=== PATIENT | male | born 1940 | race Caucasian/White ===

== ENCOUNTER 2017-10-03 00:43 | Emergency (ER) | payer MEDICARE, OTHER ==
--- NOTE | 2017-10-03 01:00 | Emergency Department Record ---
History of Present Illness - General Chief Complaint: Chest Pain Stated Complaint: CHEST PAIN Time Seen by Provider: 10/03/17 00:55 Source: Patient Mode of Arrival: Ambulatory Limitations: No limitations - History of Present Illness Initial Comments: The patient is a 77 Y/O male with a 90 minute hx of chest heaviness at home. The onset was at rest and was associated with mild SOB but no sweating. The patient did take multiple NTG pills with mild relief. 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 He denies any recent illness or injuries. The patient also states he has been having increased CP with exertion for weeks and even months. MD Complaint: Chest pain Onset/Timin -: Minutes(s) Onset: Awoke with symptoms Pain Location: Left chest Pain Radiation: YIFAN GRANADO Severity scale (1-10): 6 Quality: Heaviness Consistency: Constant Improves With: Nitroglycerin Anginal Symptoms: Dyspnea Treatments Prior to Arrival: Nitroglycerin - Related Data Home Medications Medication Instructions Recorded Confirmed Last Taken Aspirin 81 mg PO DAILY 10/03/17 10/03/17 Unknown Atorvastatin Calcium 40 mg PO QHS 10/03/17 10/03/17 Unknown Clopidogrel Bisulfate [Clopidogrel] 75 mg PO DAILY 10/03/17 10/03/17 Unknown Isosorbide Mononitrate [Imdur] 30 mg PO DAILY 10/03/17 10/03/17 Unknown Lisinopril/Hydrochlorothiazide 1 each PO DAILY 10/03/17 10/03/17 Unknown [Lisinopril-Hctz 20-12.5 mg Tab] Metoprolol Tartrate [Lopressor] 50 mg PO DAILY 10/03/17 10/03/17 Unknown Nitroglycerin 0.4MG [Nitrostat 1 tab SL ASDIR PRN 10/03/17 10/03/17 10/03/17 0.4MG] Omeprazole [Prilosec] 40 mg PO DAILY 10/03/17 10/03/17 Unknown Ranolazine [Ranexa] 1,000 mg PO BID 10/03/17 10/03/17 Unknown Allergies Allergy/AdvReac Type Severity Reaction Status Date / Time indomethacin [From Indocin] Allergy BEHAVIORAL Verified 10/03/17 00:45 CHANGES morphine Allergy HIVES Verified 10/03/17 00:45 promethazine [From Phenergan] Allergy BEHAVIORAL Verified 10/03/17 00:45 CHANGES Travel Screening - Travel/Exposure Within Last 30 Days Have you traveled within the last 30 days?: Yes Location Detail:: [place] - Travel Symptoms Symptom Screening: None Review of Systems Constitutional: Denies: Chills, Fever Eyes: Denies: Eye discharge ENT: Denies: Congestion Respiratory: Denies: Cough, Dyspnea Cardiovascular: Reports: Chest pain Endocrine: Denies: Fatigue Gastrointestinal: Denies: Abdominal pain, Hematemesis, Hematochezia, Melena Genitourinary: Denies: Dysuria Musculoskeletal: Denies: Arthralgia Past Medical History - SOCIAL HISTORY Smoking Status: Former smoker - RESPIRATORY Hx Respiratory Disorders: Yes Hx Pulmonary Embolism: Yes Comment:: Early emphysema - CARDIOVASCULAR Hx Cardio Disorders: Yes Hx Chest Pain: Yes Hx Deep Vein Thrombosis: Yes Hx Hypertension: Yes Hx Irregular Heartbeat: Yes (PVC's) Comment:: High cholesterol - NEURO Hx Neuro Disorders: No - GI Hx GI Disorders: Yes Hx Crohn's Disease: Yes Hx Obstructive Bowel: Yes Comment:: Inguinal hernia -L - Hx Genitourinary Disorders: Yes Hx Kidney Stones: Yes - ENDOCRINE Hx Endocrine Disorders: No - MUSCULOSKELETAL Hx Musculoskeletal Disorders: Yes Hx Arthritis: Yes Comment:: Psoriasis - PSYCH Hx Psych Problems: Yes Hx Anxiety: Yes Hx Depression: Yes - HEMATOLOGY/ONCOLOGY Hx Hematology/Oncology Disorders: No Family Medical History Any Significant Family History?: Yes Hx Heart Disease: Father *Heart Comment: [place] at age 52- Hx HTN: Mother Hx Liver Disease: Mother Physical Exam - General General Appearance: Alert, Oriented x3, Cooperative, No acute distress - Head Head exam: Atraumatic, Normocephalic, Normal inspection - Eye Eye exam: Normal appearance, PERRL - Neck Neck exam: Normal inspection, Full ROM. negative: Tenderness - Respiratory Respiratory exam: Normal lung sounds bilaterally. negative: Respiratory distress - Cardiovascular Cardiovascular Exam: Regular rate, Normal rhythm, Normal heart sounds - GI/Abdominal GI/Abdominal exam: Soft, Normal bowel sounds. negative: Tenderness - Rectal Rectal exam: Heme (-) stool - Extremities Extremities exam: Normal inspection, Full ROM, Normal capillary refill. negative: Tenderness - Back Back exam: Denies: Normal inspection - Neurological Neurological exam: Alert, Normal gait. negative: Abnormal gait - Psychiatric Psychiatric exam: negative: Anxious Course Vital Signs 10/03/17 00:45 Pulse Rate [ 83 Pulse Ox Probe] Respiratory 20 Rate Blood Pressure 136/67 [Left Arm] Pulse Ox 97 - Reevaluation(s) Reevaluation #1: The patient is doing a little better at this time. He is smiling and laughing at times and appears very comfortable. He states he is still having some chest heaviness. 10/03/17 01:33 Reevaluation #2: I did discuss the case with Dr. Kim who is solvent station attendant at [facility] for [facility]. He does accept the patient in transfer. 10/03/17 01:40 Reevaluation #3: The patient does appear comfortable but is having persistent pain at 5/10. We will bump his NTG up to 20 mcg and order a 2nd dose of IV Dilaudid. He is ready for transfer and does have a bed at [facility] presently. 10/03/17 02:19 Medical Decision Making - Data Complexity MDM Data: Labs Ordered and/or Reviewed, X-Ray Ordered and/or Reviewed, EKG Ordered and/or Reviewed - Lab Data Result diagrams: 10/03/17 01:03 10/03/17 01:03 - EKG Data -: EKG Interpreted by Me (NSR at 79, RBBB.) - Radiology Data Radiology results: Report reviewed (CXR: Neg for acute changes.) Disposition Disposition: Transfer Clinical Impression: Unstable angina Disposition: Acute Care Hospital Transfer Transfer To: [facility] Reason For Transfer: Cardiology Accepting Physician: Julio Time Discussed w/Accepting Physician: 01:41 Condition: (2) Stable Forms: Patient Portal Access Time of Disposition: 01:41 Quality - Quality Measures Quality Measures: N/A - Blood Pressure Screening View Details: Yes Does Patient Have Any of the Following: No Blood Pressure Classification: Pre-Hypertensive BP Reading Systolic Measurement: 126 Diastolic Measurement: 72 Screening for High Blood Pressure: < Pre-Hypertensive BP, F/U Documented > [ G8950] Pre-Hypertensive Follow-up Interventions: Referral to alternative/primary care provider.
[2017-10-03] MEDS ORDERED: ASPIRIN 325 MG TABLET PO ONE (01:02)
[2017-10-03 01:09] LABS: BASO % 0.2 % (0-6); EOS % 1.2 % (0-6); GRAN % 58.4 % (47-80); HEMATOCRIT 32.2 % (42.0-52.0); HEMOGLOBIN 10.6 gm/dl (14.0-18.0); LYMPH % 31.9 % (16-45); MEAN CELL VOLUME 91.5 fl (81-97); MEAN CORPUSCULAR HEMOGLOBIN 30.1 pg (27-33); MEAN CORPUSCULAR HGB CONC 32.9 g/dl (32-36); MEAN PLATELET VOLUME 9.7 fl (7.4-10.4); MONO % 8.3 % (0-9); PLATELET COUNT 205 K/uL (130-400); RED BLOOD COUNT 3.52 M/uL (4.40-5.70); RED CELL DISTRIBUTION WIDTH 13.9 % (11.5-14.5); WHITE BLOOD COUNT W/O DIFF 5.9 K/uL (4.2-12.2)
[2017-10-03] MEDS ORDERED: NITROGLYCERIN/D5W 50 MG/250 ML ML IV SCH (01:15)
[2017-10-03 01:17] LABS: BLOOD UREA NITROGEN 12 mg/dL (8-23); CREATININE 0.8 mg/dL (0.7-1.2); EST GLOMERULAR FILTRATION RATE > 60 mL/min
[2017-10-03] MEDS ORDERED: HYDROMORPHONE HCL 2 MG/ML VIAL IVP ONE ×2 (01:18→02:18)
[2017-10-03] MEDS ORDERED: ONDANSETRON HCL IV 4 MG/2 ML VIAL IVP ONE (01:18)
[2017-10-03 01:20] LABS: GLUCOSE,RANDOM 109 mg/dL (74-109)
[2017-10-03 01:21] LABS: PARTIAL THROMBOPLASTIN TIME 27.3 SECONDS (24.5-39.1); PROTHROMBIN TIME (PATIENT) 10.3 SECONDS (9.5-12.1)
[2017-10-03] MEDS ORDERED: HEPARIN SODIUM 1000 UNIT/1 ML 10ML VIAL IVP ONE (01:22)
[2017-10-03 01:23] LABS: CREATINE PHOSPHOKINASE 189 U/L (39-308)
[2017-10-03 01:25] LABS: CKMB 2.8 ng/mL (<6.73)
[2017-10-03] MEDS ORDERED: HEPARIN SODIUM/D5W 25,000 UNITS/500 ML BAG IV SCH (01:30)
[2017-10-03] MEDS ORDERED: POTASSIUM CHLORIDE 20 MEQ TABLET PO ONE (01:38)
--- NOTE | 2017-10-05 08:32 | RADIOLOGY REPORT ---
EXAM: CHEST 1 VIEW HISTORY: DIFFICULTY IN BREATHING. TECHNIQUE: Portable AP upright view of the chest was performed. FINDINGS: Post-op sternotomy wires. Vascular stent in place. Heart size is normal. Lung montano are clear. Osseous structures are normal. IMPRESSION: NO ACUTE PULMONARY DISEASE PROCESS. JOB NUMBER: [id number] MTDD
== END 2017-10-03 02:35 | disposition short-term general hospital (02) ==
LOC: ER 00:43
DX: I20.0 Unstable angina (principal); R06.00 Dyspnea, unspecified; I10 Essential (primary) hypertension; Z86.718 Personal history of other venous thrombosis and embolism; Z95.1 Presence of aortocoronary bypass graft; Z87.891 Personal history of nicotine dependence
CPT/HCPCS: 99285 ×2; 96376; 96365; 96366; 96375; 96368; 82550; 85025; 85730; 85610; 82553; 80048; 84484; 71045; 93005; 93010; J2405; J1170

== ENCOUNTER 2017-12-02 12:00 | Emergency (ER) | payer MEDICARE, OTHER ==
--- NOTE | 2017-12-02 12:29 | Emergency Department Record ---
History of Present Illness - General Chief Complaint: Syncope Stated Complaint: SYNCOPAL EPISODE Time Seen by Provider: 12/02/17 12:22 Source: Patient Mode of Arrival: Wheelchair Limitations: No limitations - History of Present Illness Initial Comments: pt was outside when he felt a sudden overwhelming weakness . he went inside and contd to feel that way. he said it felt like when he had a heart attack except he had no chest pain and no sob and no nausea or diaphoresis. he did feel sweaty. MD Complaint: Almost passed out Onset/Timin -: Hour(s) Prodromal Symptoms: Nausea/vomiting, Other Injuries Sustained Associated with Event: Chest Current Symptoms: Lightheaded, Weakness Treatments Prior to Arrival: None, Medication Treatment Prior to Arrival Comment:: 1- nitro - Kirsten Coma Scale Eye Response: (4) Open spontaneously Motor Response: (6) Obeys commands Verbal Response: (5) Oriented Bryant Total: 15 - Symptoms of Stroke Symptoms of stroke: Dizziness, Unsteady When Walking - Related Data Home Medications Medication Instructions Recorded Confirmed Last Taken Glucosamine/Chondr Puliod A Sod 1 each PO DAILY 12/02/17 12/02/17 Unknown [Glucosamine-Chondroitin Tablet] Magnesium Oxide [Magnesium] 400 mg PO DAILY 12/02/17 12/02/17 Unknown Vitamin B Complex 1 each PO DAILY 12/02/17 12/02/17 Unknown Allergies Allergy/AdvReac Type Severity Reaction Status Date / Time indomethacin [From Indocin] Allergy BEHAVIORAL Verified 10/03/17 00:45 CHANGES morphine Allergy HIVES Verified 10/03/17 00:45 promethazine [From Phenergan] Allergy BEHAVIORAL Verified 10/03/17 00:45 CHANGES Travel Screening - Travel/Exposure Within Last 30 Days Have you traveled within the last 30 days?: No - Travel/Exposure Within Last Year Have you traveled outside the [place] in the last year?: No - Additonal Travel Details Have you been exposed to anyone with a communicable illness?: No - Travel Symptoms Symptom Screening: None Review of Systems Reviewed: No additional complaints except as noted below Constitutional: Reports: As per HPI. Denies: Chills, Fever, Malaise, Night sweats, Weakness, Weight change Eyes: Reports: As per HPI. Denies: Eye discharge, Eye pain, Photophobia, Vision change ENT: Reports: As per HPI. Denies: Congestion, Dental pain, Ear pain, Epistaxis , Hearing loss, Throat pain Respiratory: Reports: As per HPI. Denies: Cough, Dyspnea, Hemoptysis, Stridor, Wheezes Cardiovascular: Reports: As per HPI. Denies: Arrhythmia, Chest pain, Dyspnea on exertion, Edema, Murmurs, Orthopnea, Palpitations, Paroxysmal nocturnal dyspnea, Rheumatic Fever, Syncope Endocrine: Reports: As per HPI. Denies: Fatigue, Heat or cold intolerance, Polydipsia, Polyuria Gastrointestinal: Reports: As per HPI. Denies: Abdominal pain, Constipation, Diarrhea, Hematemesis, Hematochezia, Melena, Nausea, Vomiting Genitourinary: Reports: As per HPI. Denies: Dysuria, Frequency, Hematuria, Incontinence, Retention, Testicular pain, Testicular mass, Urgency Musculoskeletal: Reports: As per HPI. Denies: Arthralgia, Back pain, Gout, Joint swelling, Myalgia, Neck pain Skin: Reports: As per HPI. Denies: Bruising, Change in color, Change in hair/ nails, Lesions, Pruritus, Rash Neurological: Reports: As per HPI. Denies: Abnormal gait, Confusion, Headache, Numbness, Paresthesias, Seizure, Tingling, Tremors, Vertigo, Weakness Psychiatric: Reports: As per HPI. Denies: Anxiety, Auditory hallucinations, Depression, Homicidal thoughts, Suicidal thoughts, Visual hallucinations Hematological/Lymphatic: Reports: As per HPI. Denies: Anemia, Blood Clots, Easy bleeding, Easy bruising, Swollen glands Past Medical History - SOCIAL HISTORY Smoking Status: Former smoker Alcohol Use: None Drug Use: None - RESPIRATORY Hx Respiratory Disorders: Yes Hx Pulmonary Embolism: Yes Comment:: Early emphysema - CARDIOVASCULAR Hx Cardio Disorders: Yes Hx Chest Pain: Yes Hx Deep Vein Thrombosis: Yes Hx Hypertension: Yes Hx Irregular Heartbeat: Yes (PVC's) Comment:: High cholesterol - NEURO Hx Neuro Disorders: No - GI Hx GI Disorders: Yes Hx Crohn's Disease: Yes Hx Obstructive Bowel: Yes Comment:: Inguinal hernia -L - Hx Genitourinary Disorders: Yes Hx Kidney Stones: Yes - ENDOCRINE Hx Endocrine Disorders: No - MUSCULOSKELETAL Hx Musculoskeletal Disorders: Yes Hx Arthritis: Yes Comment:: Psoriasis - PSYCH Hx Psych Problems: Yes Hx Anxiety: Yes Hx Depression: Yes - HEMATOLOGY/ONCOLOGY Hx Hematology/Oncology Disorders: No Family Medical History Any Significant Family History?: No Hx Heart Disease: Father *Heart Comment: [place] at age 52- Hx HTN: Mother Hx Liver Disease: Mother Physical Exam - General General Appearance: Alert, Oriented x3, Cooperative, Mild distress - Head Head exam: Normal inspection - Eye Eye exam: Normal appearance, PERRL, EOMI Pupils: Normal accommodation - ENT ENT exam: Normal exam, Mucous membranes moist, Normal external ear exam, Normal orophraynx Ear exam: Normal external inspection. negative: External canal tenderness Nasal Exam: Normal inspection. negative: Discharge, Sinus tenderness Mouth exam: Normal external inspection, Tongue normal Teeth exam: Normal inspection. negative: Dental caries Throat exam: Normal inspection. negative: Tonsillar erythema, Tonsillar exudate - Neck Neck exam: Normal inspection, Full ROM. negative: Tenderness - Respiratory Respiratory exam: Normal lung sounds bilaterally. negative: Respiratory distress - Cardiovascular Cardiovascular Exam: Regular rate, Normal rhythm, Normal heart sounds - GI/Abdominal GI/Abdominal exam: Soft, Normal bowel sounds. negative: Tenderness - Rectal Rectal exam: Deferred - exam: Deferred - Extremities Extremities exam: Normal inspection, Full ROM, Normal capillary refill. negative: Tenderness - Back Back exam: Reports: Normal inspection, Full ROM. Denies: Muscle spasm, Rash noted, Tenderness - Neurological Neurological exam: Alert, CN II-XII intact, Normal gait, Oriented X3 - Psychiatric Psychiatric exam: Normal affect, Normal mood - Skin Skin exam: Dry, Intact, Normal color, Warm Course Vital Signs 12/02/17 12:05 Temperature 97.4 F L Pulse Rate 58 L Respiratory 18 Rate Blood Pressure 125/68 Pulse Ox 100 - Reevaluation(s) Reevaluation #1: 12/02/17 14:07 pt states he feels much better and he wants to go home. i asked him to stay for a 4hr troponin Reevaluation #2: 12/02/17 17:04 pt continued to feel much better. 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 return sooner if worse. rest Forms: Patient Portal Access Quality - Quality Measures Quality Measures: N/A - Blood Pressure Screening Does Patient Have Any of the Following: No Blood Pressure Classification: Pre-Hypertensive BP Reading Systolic Measurement: 125 Diastolic Measurement: 68 Screening for High Blood Pressure: < Pre-Hypertensive BP, F/U Documented > [ G8950] Pre-Hypertensive Follow-up Interventions: Follow-up with rescreen every year.
[2017-12-02 12:43] LABS: BASO % 0.4 % (0-6); EOS % 2.9 % (0-6); GRAN % 61.9 % (47-80); HEMATOCRIT 30.2 % (42.0-52.0); HEMOGLOBIN 9.4 gm/dl (14.0-18.0); LYMPH % 26.9 % (16-45); MEAN CELL VOLUME 89.6 fl (81-97); MEAN CORPUSCULAR HGB CONC 31.1 g/dl (32-36); MEAN PLATELET VOLUME 9.6 fl (7.4-10.4); MONO % 7.9 % (0-9); PLATELET COUNT 277 K/uL (130-400); RED BLOOD COUNT 3.37 M/uL (4.40-5.70); RED CELL DISTRIBUTION WIDTH 14.6 % (11.5-14.5); WHITE BLOOD COUNT W/O DIFF 4.8 K/uL (4.2-12.2)
[2017-12-02 12:46] LABS: MEAN CORPUSCULAR HEMOGLOBIN 27.8 pg (27-33)
[2017-12-02 12:54] LABS: BLOOD UREA NITROGEN 23 mg/dL (8-23); EST GLOMERULAR FILTRATION RATE > 60 mL/min
[2017-12-02 12:55] LABS: TOTAL PROTEIN 7.6 g/dL (6.6-8.7)
[2017-12-02 12:57] LABS: GLUCOSE,RANDOM 147 mg/dL (74-109)
[2017-12-02 12:59] LABS: ALB/GLOB RATIO 1.5 (1.1-1.8); ALBUMIN 4.6 g/dL (4.0-5.0); ALKALINE PHOSPHATASE 62 U/L (40-129); ALT/SGPT 14 U/L (<41); AST/SGOT 19 U/L (10.0-50.0)
== END 2017-12-02 17:20 | disposition home or self-care (01) ==
LOC: ER 12:00
DX: R53.1 Weakness (principal); R42 Dizziness and giddiness; R11.2 Nausea with vomiting, unspecified; R20.0 Anesthesia of skin; I25.708 Atherosclerosis of coronary artery bypass graft(s), unspecified, with other forms of angina pectoris; I10 Essential (primary) hypertension; Z95.5 Presence of coronary angioplasty implant and graft; E83.42 Hypomagnesemia; I25.2 Old myocardial infarction; Z87.891 Personal history of nicotine dependence
CPT/HCPCS: 80048; 80053; 82553; 83735; 84484; 85025; 85379; 93005; 93010; 99284

== ENCOUNTER 2018-01-08 09:07 | Emergency (ER) | payer MEDICARE, OTHER ==
[2018-01-08] MEDS ORDERED: MORPHINE SULFATE 10 MG/ML VIAL IVP ONE (09:18)
--- NOTE | 2018-01-08 09:27 | Emergency Department Record ---
History of Present Illness - General Chief Complaint: Chest Pain Stated Complaint: CHEST PAIN Time Seen by Provider: 01/08/18 09:15 Source: Patient Mode of Arrival: Ambulatory Limitations: No limitations - History of Present Illness Initial Comments: The patient is here with a 3 hour hx of retrosternal chest heaviness which started about 6:45 am. He has mild YASIR with it also but no sweating. The patient has a very extensive cardiac hx with a CABG at age 49 and at least 5 heart stents. The patient did have similar pain on 10/03/17 and was transferred to [facility] where he had a heart stent placed in the R coronary artery. He has been having increased CP over the last month and has been using a lot of NTG. Additionally the patient denies any melena or blood in the stools. Onset/Timin -: Hour(s) Onset: During rest Pain Location: Left chest, Right chest Pain Radiation: YIFAN GRANADO Severity scale (1-10): 5 Quality: Heaviness Consistency: Constant Treatments Prior to Arrival: Nitroglycerin Treatment Prior to Arrival Comment:: 5 nitro - Related Data Home Medications Medication Instructions Recorded Confirmed Last Taken Docusate Sodium [Colace] 100 mg PO BID 01/08/18 01/08/18 Unknown Pantoprazole Sodium [Protonix] 40 mg PO DAILY 01/08/18 01/08/18 Unknown Allergies Allergy/AdvReac Type Severity Reaction Status Date / Time indomethacin [From Indocin] Allergy BEHAVIORAL Verified 10/03/17 00:45 CHANGES morphine Allergy HIVES Verified 10/03/17 00:45 promethazine [From Phenergan] Allergy BEHAVIORAL Verified 10/03/17 00:45 CHANGES Travel Screening - Travel/Exposure Within Last 30 Days Have you traveled within the last 30 days?: No - Travel/Exposure Within Last Year Have you traveled outside the [place] in the last year?: No - Additonal Travel Details Have you been exposed to anyone with a communicable illness?: No - Travel Symptoms Symptom Screening: None Review of Systems Constitutional: Denies: Chills, Fever Eyes: Denies: Eye discharge ENT: Denies: Congestion Respiratory: Denies: Cough, Dyspnea Cardiovascular: Reports: Chest pain. Denies: Arrhythmia Endocrine: Denies: Fatigue Gastrointestinal: Denies: Abdominal pain Genitourinary: Denies: Hematuria Musculoskeletal: Denies: Arthralgia Skin: Denies: Bruising Past Medical History - SOCIAL HISTORY Smoking Status: Former smoker Alcohol Use: None Drug Use: None - RESPIRATORY Hx Respiratory Disorders: Yes Hx Pulmonary Embolism: Yes Comment:: Early emphysema - CARDIOVASCULAR Hx Cardio Disorders: Yes Hx Chest Pain: Yes Hx Deep Vein Thrombosis: Yes Hx Hypertension: Yes Hx Irregular Heartbeat: Yes (PVC's) Comment:: High cholesterol - NEURO Hx Neuro Disorders: No - GI Hx GI Disorders: Yes Hx Crohn's Disease: Yes Hx Obstructive Bowel: Yes Comment:: Inguinal hernia -L - Hx Genitourinary Disorders: Yes Hx Kidney Stones: Yes - ENDOCRINE Hx Endocrine Disorders: No - MUSCULOSKELETAL Hx Musculoskeletal Disorders: Yes Hx Arthritis: Yes Comment:: Psoriasis - PSYCH Hx Psych Problems: Yes Hx Anxiety: Yes Hx Depression: Yes - HEMATOLOGY/ONCOLOGY Hx Hematology/Oncology Disorders: No Family Medical History Any Significant Family History?: No Hx Heart Disease: Father *Heart Comment: [place] at age 52- Hx HTN: Mother Hx Liver Disease: Mother Physical Exam - General General Appearance: Alert, Oriented x3, Cooperative, No acute distress - Head Head exam: Atraumatic, Normocephalic, Normal inspection - Eye Eye exam: Normal appearance, PERRL - ENT Throat exam: Normal inspection. negative: Tonsillar erythema, Tonsillar exudate - Neck Neck exam: Normal inspection, Full ROM. negative: Tenderness - Respiratory Respiratory exam: Normal lung sounds bilaterally. negative: Respiratory distress - Cardiovascular Cardiovascular Exam: Regular rate, Normal rhythm, Normal heart sounds - GI/Abdominal GI/Abdominal exam: Soft, Normal bowel sounds. negative: Tenderness - Extremities Extremities exam: Normal inspection, Full ROM, Normal capillary refill. negative: Tenderness - Back Back exam: Reports: Normal inspection, Full ROM. Denies: Muscle spasm, Rash noted, Tenderness - Neurological Neurological exam: Alert, Normal gait. negative: Abnormal gait, Motor sensory deficit - Psychiatric Psychiatric exam: negative: Anxious Course Vital Signs 01/08/18 09:09 Pulse Rate 80 Respiratory 20 Rate Blood Pressure 149/83 Pulse Ox 100 - Reevaluation(s) Reevaluation #1: The patient is doing better at this time. His pain is resolving and he is resting comfortably with very stable vital signs. 01/08/18 10:11 Reevaluation #2: 2nd EKG: No significant change from first EKG. Still with lateral wall ischemia. 01/08/18 10:34 Reevaluation #3: The patient is doing well at this time. I did discuss the case with Dr. Tobin at [facility] and he does accept the patient for transfer. 01/08/18 11:06 Medical Decision Making - Data Complexity MDM Data: Labs Ordered and/or Reviewed, EKG Ordered and/or Reviewed - Lab Data Result diagrams: 01/08/18 09:15 01/08/18 09:15 - EKG Data -: EKG Interpreted by Me EKG: Abnormal EKG (Lateral wall ischemia.) Disposition Disposition: Transfer Clinical Impression: Unstable angina Disposition: Acute Care Hospital Transfer Transfer To: [facility] Reason For Transfer: Cardiology Accepting Physician: Mahad Time Discussed w/Accepting Physician: 11:07 Condition: (2) Stable Forms: Patient Portal Access Time of Disposition: 11:07 Quality - Quality Measures Quality Measures: N/A - Blood Pressure Screening View Details: Yes Does Patient Have Any of the Following: No Blood Pressure Classification: Pre-Hypertensive BP Reading Systolic Measurement: 149 Diastolic Measurement: 83 Screening for High Blood Pressure: < Pre-Hypertensive BP, F/U Documented > [ G8950] Pre-Hypertensive Follow-up Interventions: Referral to alternative/primary care provider.
[2018-01-08 09:28] LABS: BASO % 0.3 % (0-6); EOS % 1.2 % (0-6); HEMATOCRIT 26.9 % (42.0-52.0); LYMPH % 26.6 % (16-45); MEAN CELL VOLUME 81.8 fl (81-97); MEAN CORPUSCULAR HEMOGLOBIN 24.3 pg (27-33); MEAN PLATELET VOLUME 9.4 fl (7.4-10.4); MONO % 7.9 % (0-9); PLATELET COUNT 260 K/uL (130-400); RED BLOOD COUNT 3.29 M/uL (4.40-5.70); RED CELL DISTRIBUTION WIDTH 16.3 % (11.5-14.5); WHITE BLOOD COUNT W/O DIFF 5.8 K/uL (4.2-12.2)
[2018-01-08 09:34] LABS: MEAN CORPUSCULAR HGB CONC 29.7 g/dl (32-36)
[2018-01-08 09:37] LABS: BLOOD UREA NITROGEN 20 mg/dL (8-23); CREATININE 1.1 mg/dL (0.7-1.2); EST GLOMERULAR FILTRATION RATE > 60 mL/min
[2018-01-08] MEDS: HYDROMORPHONE HCL 2 MG/ML VIAL IVP ONE ×2 (09:38→10:59)
[2018-01-08] MEDS: ASPIRIN 325 MG TABLET PO ONE (09:39)
[2018-01-08 09:40] LABS: GLUCOSE,RANDOM 182 mg/dL (74-109)
[2018-01-08] MEDS: NITROGLYCERIN/D5W 50 MG/250 ML ML IV SCH (09:40)
[2018-01-08 09:41] LABS: PARTIAL THROMBOPLASTIN TIME 23.3 SECONDS (24.5-39.1); PROTHROMBIN TIME (PATIENT) 10.4 SECONDS (9.5-12.1)
[2018-01-08 09:43] LABS: CREATINE PHOSPHOKINASE 96 U/L (39-308)
[2018-01-08 09:46] LABS: CKMB 1.6 ng/mL (<6.73)
[2018-01-08] MEDS: HEPARIN SODIUM 1000 UNIT/1 ML 10ML VIAL IVP ONE (10:14)
[2018-01-08] MEDS: HEPARIN SODIUM/D5W 25,000 UNITS/500 ML BAG IV SCH (10:15)
== END 2018-01-08 11:37 | disposition short-term general hospital (02) ==
LOC: ER 09:07
DX: I20.0 Unstable angina (principal); R06.00 Dyspnea, unspecified; I10 Essential (primary) hypertension; Z87.891 Personal history of nicotine dependence; Z95.5 Presence of coronary angioplasty implant and graft
CPT/HCPCS: 99285 ×2; 96376; 96365; 96366; 96375; 96368; 82550; 85025; 85730; 85610; 82553; 80048; 84484; 93005; 93010; J1170